=== PATIENT | female | born 1955 | race Asian ===

== ENCOUNTER → 2017-05-26 | Day surgery (SDC) | payer OTHER ==
[~2017-05-26] VITALS: Ht 165.1 cm; Wt 68.0 kg
[~2017-05-26] MED LIST: 0.9% Sodium Chloride 1,000 ML IV SCH; No current meds; Sodium Chloride LOK Flush 10 mL Syringe IV PRN; fentaNYL-PF 50 mCg/mL 2 mL Inj IVPUSH PRN
[2017-05-26 08:07] VITALS: BP 146/66; PULSE 62; RESP 14; O2SAT 100
[2017-05-26 09:25] VITALS: BP 106/61; PULSE 62; RESP 14; O2SAT 99
[2017-05-26 09:38] VITALS: BP 115/79; PULSE 55; RESP 16; O2SAT 98
--- NOTE | 2017-05-26 09:46 | ENDO ---
[address] [address] ENDOSCOPY PROCEDURE PATIENT: LUCINA BEAVERS : 1955 MR#: [id number] ADMIT: 05/26/2017 JOB ID: [id number] DATE: 05/26/2017 PROCEDURE: Colonoscopy. INDICATIONS: A 61-year-old female who reports for colon cancer screening. EQUIPMENT: PCF H 180 AL. SEDATION: 1. 2 mg Versed. 2. 50 mcg fentanyl. COMPLICATIONS: None identified. BOWEL PREPARATION: Excellent. PROCEDURAL INFORMATION: After the risks and benefits were explained, written and verbal informed consent was obtained. The patient was brought into the endoscopy suite and placed into the left lateral decubitus position. Sedation was achieved using the above-stated medications with the addition of oxygen via nasal cannula. A digital rectal examination was accomplished. No significant pathology appreciated. The scope was introduced into the rectum and advanced to the cecum as identified by the appendiceal orifice and ileocecal valve. The scope was slowly withdrawn to carefully examine the mucosa for any defects or lesions. Retroflexed views were avoided in the rectum. Multiple direct views were made through the dentate line for exclusion of pathology. The colon was decompressed. The scope removed from the patient who tolerated the procedure well. FINDINGS: No significant polyps, mass lesions or inflammatory features identified throughout. ENDOSCOPIC DIAGNOSIS: Visually normal colonoscopy to cecum. RECOMMENDATIONS: Repeat colonoscopy in 10 years' time, sooner should symptoms warrant.
== END | disposition home or self-care (01) ==
LOC: END 00:15
PROVIDERS: ATTEND Internal Medicine Gastroenterology
DX: Z12.11 Encounter for screening for malignant neoplasm of colon (principal)